=== PATIENT | male | born 1985 | race Caucasian/White ===

== ENCOUNTER 2022-01-09 15:31 | Emergency (ER) | payer OTHER, SELFPAY ==
[2022-01-09 15:43] VITALS: BP 126/90; PULSE 96; RESP 17; TEMP 36.9; O2SAT 97; BMI 48.8
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
[2022-01-09 15:45] VITALS: BP 122/85; PULSE 84; O2SAT 94
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
[2022-01-09 17:06] VITALS: BP 122/77; PULSE 84; RESP 17; TEMP 36.9; O2SAT 99
== END 2022-01-09 17:08 | disposition home or self-care (01) ==
PROVIDERS: Emergency Provider Nurse Practitioner Family; PCP Internal Medicine
DX: F07.81 Postconcussional syndrome (principal); I10 Essential (primary) hypertension; E78.5 Hyperlipidemia, unspecified; V86.55XA Driver of 3- or 4- wheeled all-terrain vehicle (ATV) injured in nontraffic accident, initial encounter; Y92.838 Other recreation area as the place of occurrence of the external cause
CPT/HCPCS: 70450; 72125; 99284

== ENCOUNTER → 2022-08-27 14:02 | Outpatient (CLI) | payer OTHER, SELFPAY | PROVIDERS: PCP Family Medicine; Visit Provider Nurse Practitioner Family | DX: J02.0 Streptococcal pharyngitis (principal); B95.4 Other streptococcus as the cause of diseases classified elsewhere | CPT/HCPCS: 87070; 87077; 87186 ==

== ENCOUNTER → 2022-11-04 14:30 | Outpatient (CLI) | payer OTHER, SELFPAY ==
--- NOTE | 2022-11-04 14:34 | MM_ITS ---
PROCEDURE INFORMATION: Exam: Bilateral Diagnostic Breast Tomosynthesis Exam date and time: 11/04/2022 2:36 PM Age: 37 years old Clinical indication: Right breast tenderness TECHNIQUE: Imaging protocol: Bilateral Diagnostic tomosynthesis and 2D mammography including computer-aided detection (CAD) when performed. Unilateral or bilateral exam. COMPARISON: No relevant prior studies available. FINDINGS: MAMMOGRAPHY: Bilateral flame shaped retroareolar fibroglandular densities are present moderate on the right and trace on the left. This is diagnostic of benign gynecomastia. No mass, architectural distortion, or suspicious calcifications is present to suggest malignancy. No axillary adenopathy. IMPRESSION: No mammographic evidence of malignancy. Clinical follow-up is recommended regarding the patient's symptoms. If a focal palpable lump were to developed/progressed then reassessment should be considered at time ASSESSMENT: BI-RADS category 2: Benign
== END ==
PROVIDERS: PCP Nurse Practitioner Family; Visit Provider Nurse Practitioner Family
DX: N64.4 Mastodynia (principal)
CPT/HCPCS: 77062; 77066; G0279

== ENCOUNTER → 2023-08-02 19:28 | Outpatient (CLI) | payer OTHER, SELFPAY ==
[2023-08-02 20:13] LABS: Basophils % 0.6 % (0.1-2.0); Eosinophils # 0.1 K/mm3 (0.0-0.4); Eosinophils % 1.4 % (0.1-12.0); Hematocrit 52.7 % (42.0-52.0); Hemoglobin 17.7 g/dL (14.1-18.0); Lymphocytes # 1.1 K/mm3 (0.7-4.5); Lymphocytes % 18.4 % (10-50); Mean Corpuscular HGB Conc 33.5 g/dL (31.8-35.4); Mean Corpuscular Hemoglobin 30.3 pg (27.0-31.2); Mean Corpuscular Volume 90.5 fl (80-94); Monocytes # 0.5 K/mm3 (0.1-1.0); Monocytes % 8.5 % (1.7-9.3); Neutrophils # 4.2 K/mm3 (1.8-7.8); Neutrophils % 71.1 % (37.0-80.0); Platelet Count 239 K/mm3 (142-424); Red Blood Count 5.82 M/mm3 (4.60-6.20); Red Cell Distribution Width 13.5 % (11.5-17.5); White Blood Count 5.9 K/mm3 (4.8-10.8)
[2023-08-02 20:52] LABS: Sodium 137 mmol/L (136-145)
[2023-08-02 20:56] LABS: Thyroid Stimulating Hormone 3.31 uIU/mL (0.465-4.68)
[2023-08-02 21:09] LABS: Chloride 103 mmol/L (98-107); Potassium 4.4 mmoL/L (3.5-5.1)
[2023-08-02 21:11] LABS: Blood Urea Nitrogen 14 mg/dl (9-20); Estimated Glomerular Filt Rate 83 ml/min (>60); GFR (African American) 101 ML/MIN (>60)
[2023-08-02 21:12] LABS: Alanine Aminotransferase 58 U/L (12-78); Albumin Level 4.5 g/dl (3.5-5.0); Albumin/Globulin Ratio 1.6 (1.1-1.8); Alkaline Phosphatase 108 U/L (38-126); Anion Gap 14.4 mEq/L (5-15); Aspartate Amino Transferase 52 U/L (17-59); Bilirubin,Total 0.6 mg/dl (0.2-1.3); Calcium 9.2 mg/dl (8.4-10.2); Carbon Dioxide 24 mmol/L (22.0-30.0); Cholesterol 231 mg/dl (140-200); Globulin 2.9 g/dL (1.3-3.2); Glucose 102 mg/dl (74-100); Total Protein,Serum 7.4 g/dl (6.3-8.2); Triglycerides 202 mg/dl (30-150); VLDL Cholesterol 40 mg/dL (0-40)
[2023-08-02 21:13] LABS: Chol/HDL Ratio 5.5 (1-3.5); HDL Cholesterol 42 mg/dl (40-60)
[2023-08-02 21:16] LABS: Hemoglobin A1C 5.7 % (4.0-6.0)
[2023-08-02 21:24] LABS: Direct LDL Cholesterol 159.08 mg/dL (100-129)
[2023-08-04 11:56] LABS: FSH 4.1 mIU/mL (1.5-12.4); LH 3.7 mIU/mL (1.7-8.6); Testosterone,Total 122 ng/dL (264-916)
[2023-08-06 22:20] LABS: Estrogen 129 pg/mL (56-213)
== END ==
PROVIDERS: PCP Nurse Practitioner Family; Visit Provider Nurse Practitioner Family
DX: E78.5 Hyperlipidemia, unspecified (principal); N62 Hypertrophy of breast
CPT/HCPCS: 80053; 80061; 82672; 83001; 83002; 83036; 84403; 84443; 85025

== ENCOUNTER → 2023-08-03 10:50 | Outpatient (CLI) | payer OTHER, SELFPAY | PROVIDERS: Visit Provider Nurse Practitioner Family | DX: N64.4 Mastodynia (principal) ==

== ENCOUNTER 2023-08-08 11:00 | Outpatient (RCR) | payer OTHER, SELFPAY | END 2023-09-05 08:55 | disposition home or self-care (01) | LOC: PT 11:00 | PROVIDERS: PCP Family Medicine; Visit Provider Orthopaedic Surgery Adult Reconstructive Orthopaedic Surgery | DX: G56.03 Carpal tunnel syndrome, bilateral upper limbs (principal) | CPT/HCPCS: 97018; 97110; 97163 ==

== ENCOUNTER 2023-11-03 09:25 | Outpatient (CLI) | payer OTHER, SELFPAY ==
[2023-11-03 19:12] LABS: Basophils # 0.1 K/mm3 (0-0.2); Basophils % 0.8 % (0.1-2.0); Eosinophils # 0.2 K/mm3 (0.0-0.4); Eosinophils % 1.9 % (0.1-12.0); Hematocrit 53.5 % (42.0-52.0); Lymphocytes # 1.6 K/mm3 (0.7-4.5); Lymphocytes % 18.7 % (10-50); Mean Corpuscular HGB Conc 34.7 g/dL (31.8-35.4); Mean Corpuscular Hemoglobin 31.5 pg (27.0-31.2); Mean Corpuscular Volume 90.8 fl (80-94); Mean Platelet Volume 8.7 fl (7.4-10.4); Monocytes # 0.6 K/mm3 (0.1-1.0); Monocytes % 7.6 % (1.7-9.3); Neutrophils # 5.9 K/mm3 (1.8-7.8); Neutrophils % 71.1 % (37.0-80.0); Platelet Count 259 K/mm3 (142-424); Red Blood Count 5.89 M/mm3 (4.60-6.20); Red Cell Distribution Width 13.3 % (11.5-17.5); White Blood Count 8.3 K/mm3 (4.8-10.8)
[2023-11-03 19:39] LABS: Erythrocyte Sedimentation Rate 1 mm/hr (0-15)
[2023-11-03 19:40] LABS: Hemoglobin 18.6 g/dL (14.1-18.0)
[2023-11-05 06:43] LABS: RA Latex Turbid. <10.0 IU/mL (<14.0)
[2023-11-09 12:18] LABS: Antinuclear Antibodies (ANA) NEGATIVE
== END 2023-11-03 23:59 ==
LOC: LAB.DROPOF 11-07 09:26
PROVIDERS: PCP Family Medicine; Visit Provider Family Medicine
DX: R60.0 Localized edema (principal); M25.50 Pain in unspecified joint
CPT/HCPCS: 85025; 85651; 86038; 86225; 86235; 86431

== ENCOUNTER 2023-12-06 17:08 | Outpatient (CLI) | payer OTHER, SELFPAY ==
[2023-12-06 19:00] LABS: Basophils % 0.5 % (0.1-2.0); Eosinophils # 0.1 K/mm3 (0.0-0.4); Eosinophils % 2.2 % (0.1-12.0); Hematocrit 54.2 % (42.0-52.0); Hemoglobin 17.4 g/dL (14.1-18.0); Lymphocytes # 1.2 K/mm3 (0.7-4.5); Lymphocytes % 19.8 % (10-50); Mean Corpuscular HGB Conc 32.1 g/dL (31.8-35.4); Mean Corpuscular Hemoglobin 29.7 pg (27.0-31.2); Mean Corpuscular Volume 92.5 fl (80-94); Monocytes # 0.6 K/mm3 (0.1-1.0); Monocytes % 9.3 % (1.7-9.3); Neutrophils # 4.3 K/mm3 (1.8-7.8); Neutrophils % 68.3 % (37.0-80.0); Platelet Count 307 K/mm3 (142-424); Red Blood Count 5.86 M/mm3 (4.60-6.20); Red Cell Distribution Width 13.1 % (11.5-17.5); White Blood Count 6.3 K/mm3 (4.8-10.8)
[2023-12-06 19:35] LABS: Anion Gap 15.5 mEq/L (5-15); Blood Urea Nitrogen 15 mg/dl (9-20); Calcium 9.8 mg/dl (8.4-10.2); Carbon Dioxide 27 mmol/L (22.0-30.0); Chloride 100 mmol/L (98-107); Estimated Glomerular Filt Rate 75 ml/min (>60); GFR (African American) 90 ML/MIN (>60); Glucose 92 mg/dl (74-100); Potassium 4.5 mmoL/L (3.5-5.1); Sodium 138 mmol/L (136-145)
== END 2023-12-06 23:59 ==
LOC: LAB.DROPOF 17:09
PROVIDERS: PCP Family Medicine; Visit Provider Family Medicine
DX: D58.2 Other hemoglobinopathies (principal)
CPT/HCPCS: 80048; 85025

== ENCOUNTER 2024-07-09 16:15 | Outpatient (CLI) | payer OTHER, SELFPAY | END 2024-07-09 23:59 | disposition home or self-care (01) | LOC: LAB.DROPOF 16:16 | PROVIDERS: PCP Family Medicine; Visit Provider Family Medicine | DX: R39.9 Unspecified symptoms and signs involving the genitourinary system (principal) | CPT/HCPCS: 87086 ==

== ENCOUNTER 2024-12-27 07:45 | Outpatient (CLI) | payer OTHER, SELFPAY ==
--- NOTE | 2024-12-27 07:47 | US_ITS ---
FINAL REPORT TECHNIQUE: Multiple transverse and longitudinal images CLINICAL HISTORY: TRANSMINITIS SUSPECTING FATTY LIVER COMPARISON: None FINDINGS: The gallbladder shows no wall thickening, distention or stone disease. No biliary ductal dilatation is appreciated. No fluid collections are seen. Limited portions of the right liver demonstrate increased echogenicity consistent with fatty infiltration. Limited portions of the right kidney are unremarkable. IMPRESSION: Diffuse fatty infiltration of the liver without cholelithiasis or biliary obstruction. Reviewed, Interpreted and Dictated by Iggy Quintero MD Transcribed by Kirsten Noonan Authenticated and [facility]
== END 2024-12-27 23:59 | disposition home or self-care (01) ==
LOC: RAD 07:45
PROVIDERS: PCP Family Medicine; Visit Provider Internal Medicine
DX: R74.01 Elevation of levels of liver transaminase levels (principal)
CPT/HCPCS: 76705